=== PATIENT | female | born 1960 | race Two or more races ===

== ENCOUNTER 2022-04-30 11:33 | Emergency (ER) | payer SELFPAY ==
[2022-04-30 11:49] VITALS: BP 136/76; PULSE 82; RESP 16; TEMP 98.3; BMI 24.5
[2022-04-30] MEDS ORDERED: LOPERAMIDE HCL 2 MG CAPSULE PO ONE (12:09)
[2022-04-30] MEDS ORDERED: SODIUM CHLORIDE 0.9% 500 ML INFUS.BAG IV ONE (12:09)
[2022-04-30] MEDS ORDERED: LOPERAMIDE HCL 2 MG CAPSULE ONE (12:16)
[2022-04-30 12:46] LABS: HEMATOCRIT 38.5 % (32.4-45.2); HEMOGLOBIN 13.2 G/dL (10.7-15.3); MCH 29.8 pg (25.7-33.7); MCHC 34.4 g/dl (32.0-36.0); MEAN CELL VOLUME 86.6 fl (80-96); MEAN PLT VOLUME 7.4 fl (7.5-11.1); PLATELET COUNT 220.3 10^3/uL (134-434); RBC 4.44 10^6/uL (3.60-5.2); WHITE BLOOD COUNT 4.8 10^3/uL (4.0-10.8)
[2022-04-30 12:56] LABS: BILIRUBIN,TOTAL 0.4 mg/dl (0.2-1); CALCIUM 9.1 mg/dl (8.5-10); CREATININE 0.7 mg/dl (0.55-1.3)
== END 2022-04-30 13:29 | disposition home or self-care (01) ==
LOC: FER 11:33
DX: K52.9 Noninfective gastroenteritis and colitis, unspecified (principal)
CPT/HCPCS: 36415; 80053; 85025; 99283-25